=== PATIENT | female | born 1945 | race Caucasian/White ===

== ENCOUNTER 2016-04-19 06:37 | Day surgery (SDC) | payer OTHER ==
[2016-04-13 13:06] VITALS: BMI 27.4
[2016-04-19] MEDS ORDERED: MIDAZOLAM HCL 2 MG/2 ML SINGLE DOSE VIAL ONE ×2 (07:11→08:26)
[2016-04-19] MEDS: CYCLOPENTOLATE 2% OPHTH SOLN 2 ML BOTTLE ONE ×3 (07:20→07:30)
[2016-04-19] MEDS ORDERED: LIDOCAINE 1% P/F 10 MG/ML VIAL ONE (07:20)
[2016-04-19] MEDS: TROPICAMIDE 1% OPHTH SOLN 15 ML BOTTLE ONE ×3 (07:20→07:30)
[2016-04-19] MEDS: PHENYLEPHRINE 2.5% OPHTH SOLN 15 ML BOTTLE ONE ×3 (07:20→07:30)
[2016-04-19] MEDS: CIPROFLOXACIN 0.3% EYE DROPS 5 ML BOTTLE ONE ×3 (07:20→07:30)
[2016-04-19] MEDS ORDERED: TETRACAINE 0.5% OPHTH SOLN 2 ML BOTTLE ONE (07:21)
[2016-04-19] MEDS ORDERED: LIDOCAINE HCL 2% JELLY 10 ML CARTRIDGE ONE (07:21)
[2016-04-19] MEDS ORDERED: BSS (NA/CA/MG/K) BALANCED SALT SOLUTION OPHTH SOLN 15 ML BOTTLE ONE (07:21)
[2016-04-19] MEDS ORDERED: NEO/POLYMYX B SULF/DEXAMETH OPHTHALMIC 5ML BOTTLE ONE ×2 (07:21→07:22)
[2016-04-19] MEDS ORDERED: CARBACHOL 0.01% INTRA-OCULAR 1.5 ML VIAL ONE (07:21)
[2016-04-19 07:26] VITALS: TEMP 98
[2016-04-19] MEDS ORDERED: ACETAMINOPHEN 325 MG TABLET (FP) PO PRN (08:13)
[2016-04-19] MEDS ORDERED: ONDANSETRON 4 MG/2 ML VIAL IVPUSH PRN (08:13)
[2016-04-19] MEDS ORDERED: LACTATED RINGERS SOLUTION 1,000 ML IV SCH (08:15)
--- NOTE | 2016-04-19 09:14 | OP ---
DATE OF PROCEDURE: 04/19/2016 OPERATIVE PROCEDURE: Lens Phacoemulsification with Posterior Chamber Intraocular Lens Placement Left Eye PREOPERATIVE DIAGNOSIS: Visually Significant Cataract of Left Eye POSTOPERATIVE DIAGNOSIS: Visually Significant Cataract of Left Eye SURGEON: Herbert Galloway M.D. ANESTHESIA: MAC ANESTHESIOLOGIST: PROCEDURE: The patient was brought to the operating room and placed under monitored anesthesia care by Anesthesia. A drop of Tetracaine was then placed over the left eye. The patient was then prepped and draped in the usual sterile manner. A speculum was then placed over the left eye. The eye was then well irrigated with copious amounts of BSS (balanced salt solution). The operating microscope was then moved into position. A paracentesis was performed using a 15 degree blade. At this point 0.5 mL of 1% preservative-free lidocaine was injected into the anterior chamber. Amvisc plus was then injected into the anterior chamber. A clear corneal incision was then formed using a 2.2 mm keratome. A capsulorrhexis was then performed in a continuous circular fashion beginning with a cystotome, completed with an Utratas forceps. Hydrodissection was then performed using BSS on a cannula. The phaco probe was then introduced through the corneal wound and the cataract was removed using the phaco chop technique. Approximately 3 seconds of absolute phaco time was used. The remaining cortex was then removed using irrigation and aspiration with an I/A probe. The capsule was then filled with regular Amvisc and the capsule was noted to be intact. A previously selected foldable posterior chamber intraocular lens was then injected into the capsule through the corneal wound using a lens injector. It was then dialed into position using a Sinskey hook. The Amvisc was then removed using irrigation and aspiration. Miostat was then injected through the paracentesis to constrict the pupil. The paracentesis and corneal wound were then hydrated and noted to be water tight. A drop of Maxitrol was then placed over the eye. The speculum was removed and clear shield was taped over the eye. The patient tolerated the procedure well and there were no surgical complications. The patient was asked to follow up in my office the next day. HERBERT GALLOWAY M.D. [id number]
[2016-04-19] MEDS ORDERED: ACETAMINOPHEN 325 MG TABLET (FP) ONE (09:16)
[2016-04-19 10:22] VITALS: BP 142/72; PULSE 80
== END 2016-04-19 09:50 | disposition home or self-care (01) ==
LOC: FASU 06:37
PROVIDERS: ATTEND Ophthalmology
PROC: 08RK3JZ Replacement of Left Lens with Synthetic Substitute, Percutaneous Approach (ICD-10-PCS; principal; 2016-04-19 08:23)
DX: H26.8 Other specified cataract (principal)

== ENCOUNTER 2016-06-14 07:41 | Day surgery (SDC) | payer OTHER ==
[2016-06-12 11:50] VITALS: BMI 27.8
[2016-06-14] MEDS ORDERED: PROPOFOL 20 ML ONE (07:58)
[2016-06-14 10:26] VITALS: PULSE 52
[2016-06-14 10:27] VITALS: BP 114/65; TEMP 98
--- NOTE | 2016-06-15 11:37 | PATH ---
Surgical Pathology Report Patient Name: MINA JOSUE [facility]. Rec. #: [id number] /Age/Gender: 1945 (Age: 70) / F Account: [id number] Location: [facility]-ENDOSCOPY Taken: 06/14/2016 Received: 06/14/2016 Reported: 06/15/2016 Physicians: Mahamed Vega M.D. Specimen(s) Received A: BX DUODENUM B: BX ANTRUM Clinical History GERD Gastritis, hiatal hernia Final Diagnosis A. DUODENUM, BIOPSY: DUODENAL MUCOSA WITH NO PATHOLOGIC CHANGES. NO HISTOLOGIC EVIDENCE OF GLUTEN SENSITIVE ENTEROPATHY (CELIAC SPRUE) IDENTIFIED. B. STOMACH, ANTRUM, BIOPSY: GASTRIC ANTRAL MUCOSA WITH REACTIVE GASTROPATHY. IMMUNOSTAIN FOR H. PYLORI IS NEGATIVE. Electronically Signed Gerber Burgos M.D. Gross Description A. Received in formalin, labeled "duodenum" are 2 fritz, irregular portions of soft tissue averaging 0.3 cm. in greatest dimension. The specimens are submitted in toto in one cassette. B. Received in formalin, labeled "antrum" are 2 fritz, irregular portions of soft tissue averaging 0.3 cm. in greatest dimension. The specimens are submitted in toto in one cassette. 06/14/2016 saudi06/14/2016
== END 2016-06-14 10:10 | disposition home or self-care (01) ==
LOC: FASU-ENDO 07:41
PROVIDERS: ATTEND Internal Medicine Gastroenterology
PROC: 0DB68ZX Excision of Stomach, Via Natural or Artificial Opening Endoscopic, Diagnostic (ICD-10-PCS; 2016-06-14)
PROC: 0DB98ZX Excision of Duodenum, Via Natural or Artificial Opening Endoscopic, Diagnostic (ICD-10-PCS; principal; 2016-06-14 09:06)
DX: K31.9 Disease of stomach and duodenum, unspecified (principal); K44.9 Diaphragmatic hernia without obstruction or gangrene
CPT/HCPCS: 88305-TC; 88342-TC

== ENCOUNTER 2017-08-01 04:51 | Day surgery (SDC) | payer OTHER ==
[2017-07-26 16:24] VITALS: BMI 29.8
[2017-08-01 12:21] VITALS: PULSE 68
[2017-08-01 14:36] VITALS: BP 129/67; TEMP 97.8
== END 2017-08-01 13:25 | disposition home or self-care (01) ==
LOC: JASU-SURG 04:51
PROVIDERS: ATTEND Otolaryngology
PROC: 0CBS8ZZ Excision of Larynx, Via Natural or Artificial Opening Endoscopic (ICD-10-PCS; principal; 2017-08-01)
DX: J38.7 Other diseases of larynx (principal)
CPT/HCPCS: 88305-TC; 94760

== ENCOUNTER 2018-04-20 11:28 | Emergency (ER) | payer OTHER ==
[2018-04-20 11:34] VITALS: BMI 30.1
--- NOTE | 2018-04-20 12:10 | PDOC ---
History of Present Illness - General Chief Complaint: Pain, Acute Stated Complaint: CHOKING SENSATION Time Seen by Provider: 04/20/18 12:09 History Source: Patient, Old Records Exam Limitations: No Limitations - History of Present Illness Initial Comments: HPI: 72 y/o female presenting to [facility] ER complaining of a sensation of choking. Episode woke the pt from sleep. She states she had difficulty with inspiration and expiration. Noted a whistling sound. [place] as though there was something in her throat. Eventually, the pt was able to cough and the sensation resolved. Has experienced multiple similar episodes over the past five days. 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 Feels as though she is occasionally having trouble passing solid and liquid food similar to sensations experienced prior to the excision. Pt endorses recent URI symptoms. S/p outpatient Azithromycin antibiotic course. PCP: Dr. 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 L face, no radiation or chemotherapy Surgical Hx: - R and L hip replacement Past History - Past Medical History Allergies/Adverse Reactions: Allergies Allergy/AdvReac Type Severity Reaction Status Date / Time No Known Drug Allergies Allergy Verified 04/20/18 11:30 Home Medications: Ambulatory Orders Multivitamin [Multivitamins] 1 cap PO DAILY 06/17/13 Mv,Iron,Mins/Folic Acid/Biotin [Hair, Skin and Nails Softgel] 66.7 mcg PO BID Atenolol [Tenormin -] 50 mg PO HS 06/12/16 Pantoprazole Sodium 40 mg PO DAILY 06/12/16 Tramadol HCl [Ultram] 50 mg PO QID PRN 06/12/16 Benzonatate [Tessalon Pearls -] 200 mg PO TID #42 cap 04/20/18 Famotidine [Pepcid] 20 mg PO BID #28 tablet 04/20/18 Ibandronate Sodium 150 mg PO MONTHLY 04/20/18 Anemia: No Asthma: No Cancer: Yes (SKIN X 2-MELANOMA) Cardiac Disorders: No CVA: No COPD: No CHF: No Dementia: No Diabetes: No GI Disorders: Yes (REFLUX,GERD) Disorders: No HTN: Yes Hypercholesterolemia: No Liver Disease: No Seizures: No Thyroid Disease: No - Surgical History Abdominal Surgery: Yes (OPEN PARTIAL HYSTERECTOMY) Appendectomy: No Cardiac Surgery: No Cholecystectomy: No Lung Surgery: No Neurologic Surgery: No Orthopedic Surgery: Yes (BILATERAL HIP REPLACEMENT) - Immunization History Immunization Up to Date: Yes - Suicide/Smoking/Psychosocial Hx Smoking Status: No Smoking History: Never smoked Have you smoked in the past 12 months: No Number of Cigarettes Smoked Daily: 0 Cigars Per Day: 0 Hx Alcohol Use: No Drug/Substance Use Hx: No Substance Use Type: None Hx Substance Use Treatment: No Review of Systems - Review of Systems Able to Perform ROS?: Yes Comments:: In addition to that documented in the HPI above, the additional ROS was obtained : Constitutional: Denies fevers or chills Eyes: Denies vision changes ENMT: Per HPI CV: Denies chest pain Resp: Endorses SOB with sensation of choking GI: Denies vomiting or diarrhea : Denies painful urination MSK: Denies recent trauma Skin: Denies new rashes Neuro: Denies new numbness or tingling or weakness Endocrine: Denies polyuria Heme: Denies bleeding or bruising *Physical Exam - Vital Signs Last Vital Signs Temp Pulse Resp BP Pulse Ox 97.6 F 64 18 180/81 H 97 04/20/18 11:30 04/20/18 11:30 04/20/18 11:30 04/20/18 11:30 04/20/18 11:30 - Physical Exam Comments: Constitutional: Well-developed, well-nourished female in no acute distress or obvious discomfort. Found semi-fowlers on hospital bed. Alert and oriented x4. Answered all questions appropriately and completely. Speech was non-labored, non -pressured. Head: Normocephalic. No obvious external signs of trauma. Eyes: Sclerae white. EARS: Hearing grossly intact. NOSE: No nasal discharge. THROAT: Oral cavity and pharynx normal, though difficult to visualize posterior oropharynx. Mallampati class III. No inflammation, swelling, exudate, or lesions. Teeth and gingiva in good general condition. Neck: Supple, trachea is midline. Cardiovascular: Regular rate and regular rhythm. No murmur, rubs, clicks, or gallops. Peripheral pulses: Radial pulses full. Respiratory: Breathing unlabored. Equal chest rise and fall. Clear to auscultation bilaterally. No stridor, no wheezing, no rhonchi. No upper airway sounds. Neuro: Alert and oriented. Moving all four extremities spontaneously. Skin: Warm, dry, and intact. Psych: Affect: appropriate. Mood: normal. Moderate Sedation - Procedure Monitoring Vital Signs: Procedure Monitoring Vital Signs Temperature 97.6 F 04/20/18 11:30 Pulse Rate 64 04/20/18 11:30 Respiratory Rate 18 04/20/18 11:30 Blood Pressure 180/81 H 04/20/18 11:30 O2 Sat by Pulse Oximetry (%) 97 04/20/18 11:30 Medical Decision Making - Medical Decision Making *Reviewed vital signs, nursing notes, and prior visit documentation (if available). 72 y/o female presenting with multiple resolved episodes of choking sensation with noisy breathing. Endorses occasional difficulty swallowing both liquids and solids. H/o vallecular epiglottic cyst. No respiratory distress or difficulty while in the department. Concern for possible recurrence of cyst with episodic airway obstruction versus esophageal spasm versus laryngeal spasm. 13:18 Telephone page sent to Dr. Arias, pts ENT of record. Awaiting call back. Telephone consultation with Dr. Arias. Verbally appraised of the pts HPI, ED course, and current plan of management. Will evaluate pt in the department. 15:[address] with Dr[address] Arias. Suspects symptoms are laryngeal spasm likely exacerbated by coughing and GERD. Recommends pt start Famotidine, Tessalon Pearls. To continue pantoprazole as previously prescribed. Pt can follow up as outpatient as needed. *DC/Admit/Observation/Transfer Diagnosis at time of Disposition: Laryngeal spasm - Discharge Dispostion Disposition: HOME Condition at time of disposition: Good Decision to Admit order: No - Prescriptions Prescriptions: Benzonatate [Tessalon Pearls -] 200 mg PO TID #42 cap Famotidine [Pepcid] 20 mg PO BID #28 tablet - Referrals Referrals: Fabiana Bhagat MD [Primary Care Provider] - Jimbo Arias MD [Staff Physician] - - Patient Instructions Printed Discharge Instructions: DI for Gastroesophageal Reflux Disease (GERD) Additional Instructions: You were seen today for a choking sensation in your throat. Dr. Arias came and evaluated you in the department. Your symptoms are likely related to a laryngeal spasm. You should continue to take your Pantoprazole for reflux. I have sent a prescription for for Tessalon Pearls to help with coughing and a prescription for Pepcid to help with reflux symptoms. Continue taking your home medications as previously prescribed. Follow up with your primary care doctor within the next 3-4 days. You will need to call to make an appointment. You can also follow up with Dr. Arias as needed. Go to the nearest emergency department if your condition worsens or you feel like you need additional emergency evaluation. Print Language: GAMBIAN - Post Discharge Activity
--- NOTE | 2018-04-20 15:18 | CON.ENT ---
Consult Consult Specialty:: ENT Referred by:: Dr. Calderon Reason for Consultation:: choking - History of Present Illness Chief Complaint: choking History of Present Illness: 72yo F with known hx GERD, had right valecular cyst excised , endotracheal intubation for elective lipoma surgery was well until 03-31-18, became ill wiht URI, saw PMD 04-03-18, rx ?azithromycin , felt well 04-09-18. Then yumiko past week throat moreirritated, feels [id number] coughing, feels SOB, once had significant trouble breahting with litle air movement and a stridorous sound Known hx GERd, on pantoprazole 40 mg qAM, GI Dr. Tovar, recent EGD/colonoscopy ok per pt and her . 3 days ago had severe reflux with throat burning tried otc mds including Benadryl, Tylenol sinus, Mucinex severe , - History Source History Provided By: Patient, Family Member, Medical Record - Alcohol/Substance Use Hx Alcohol Use: No - Smoking History Smoking history: Never smoked Have you smoked in the past 12 months: No Aproximately how many cigarettes per day: 0 Home Medications - Allergies Allergies/Adverse Reactions: Allergies Allergy/AdvReac Type Severity Reaction Status Date / Time No Known Drug Allergies Allergy Verified 04/20/18 11:30 - Home Medications Home Medications: Ambulatory Orders Multivitamin [Multivitamins] 1 cap PO DAILY 06/17/13 Mv,Iron,Mins/Folic Acid/Biotin [Hair, Skin and Nails Softgel] 66.7 mcg PO BID Atenolol [Tenormin -] 50 mg PO HS 06/12/16 Pantoprazole Sodium 40 mg PO DAILY 06/12/16 Tramadol HCl [Ultram] 50 mg PO QID PRN 06/12/16 Benzonatate [Tessalon Pearls -] 200 mg PO TID #42 cap 04/20/18 Ibandronate Sodium 150 mg PO MONTHLY 04/20/18 Physical Exam-ENT Vital Signs: Vital Signs Temperature 97.6 F 04/20/18 11:30 Pulse Rate 64 04/20/18 11:30 Respiratory Rate 18 04/20/18 11:30 Blood Pressure 180/81 H 04/20/18 11:30 O2 Sat by Pulse Oximetry (%) 97 04/20/18 11:30 Constitutional: Yes: Well Nourished, No Distress, Calm Head: Yes: WNL Face: Yes: WNL Eyes: Yes: WNL Nose: Yes: Other (sl edema, sl dry, no bleeding, no pus or polyp) Nasal Passage: Yes: WNL Oral/Pharynx: Yes: Other (tongue Class 3, oropharynx WNL exam caused coughing , voice clear, no stridor or respiratory distress) Outer Ear: Yes: WNL Ear Canal: Yes: WNL Tympanic Membrane: Yes: WNL Neck: Yes: WNL Problem List - Problems (1) Cough Code(s): R05 - COUGH (2) Choking episode Assessment/Plan: presently resolved suspect acute on chronic pharyngitis, combination of URI and laryngopharyngeal reflux Code(s): R09.89 - OTH SYMPTOMS AND SIGNS INVOLVING THE CIRC AND RESP SYSTEMS (3) GERD (gastroesophageal reflux disease) Assessment/Plan: known GERD on pantoprazole 40 mg qAM recent EGD by Dr. Tovar WN Recommend: continue pantoprazole add famotidine either 20 mg BID or 40 mg qHS reflux precautions don't eat late elevate head of bed (shoulders higher than hips using pillows) follow-up in office 2-3 weeks, pt and advised to call earlier if symptoms worse Thank you for consultation, Marciano Arias MD FACS Code(s): K21.9 - GASTRO-ESOPHAGEAL REFLUX DISEASE WITHOUT ESOPHAGITIS Qualifiers: Esophagitis presence: esophagitis presence not specified Qualified Code(s) : K21.9 - Gastro-esophageal reflux disease without esophagitis
[2018-04-20 15:44] VITALS: BP 167/82; PULSE 60; TEMP 98.1
--- NOTE | 2018-04-20 15:51 | PDOC ---
Attending Attestation - Resident Resident Name: Dexter Calderon - ED Attending Attestation I have performed the following: I have examined & evaluated the patient, The case was reviewed & discussed with the resident, I agree w/resident's findings & plan, Exceptions are as noted - HPI HPI: 04/20/18 15:43 GENERAL: The patient is in no acute distress. EYES: PERRLA, EOMI, sclera anicteric, conjunctiva clear. ENT: Ears normal, nares patent, oropharynx clear without exudates. Moist mucous membranes. Difficulty seeing Uvula NECK: Normal range of motion, supple without lymphadenopathy LUNGS: Breath sounds equal, clear to auscultation bilaterally. No wheezes, and no crackles. HEART:Regular rate and rhythm, normal S1 and S2 without murmur, rub or gallop. ABDOMEN: Soft, nontender, normoactive bowel sounds. No guarding, no rebound. No masses palpable. EXTREMITIES: Normal range of motion, no edema. NEUROLOGICAL: Cranial nerves II through XII grossly intact. Normal speech. No focal neurological deficits. SKIN: Warm, Dry, normal turgor, no rashes or lesions noted. - Medical Decision Making 04/20/18 15:44 72 yo F presenting for evaluation of choking sensation, respiratory distress Briefly, she is s/p removal of valecula cyst in July 2017 She had choking sensation daily mid march her got an upper respiratory infection, she then got it Was started on Azithromycin This did not help the congested feeling This morning she had a sensation that her airway was being obstructed She was able to clear it Pt currently is at her baseline no chest pain No shortness of breath Case reviewed with Dr Arias who has seen this patient in the ER He is concerned about direct visualization of the pharynx and larynx given she seems irritated He would recommend Pepcid in addition to her protonix, and Tessalon Pearles Pt understands importance of follow up Return to the ER for any recurrence of symptoms <Kenzie Padilla - Last Filed: 04/20/18 15:43> - HPI HPI: The patient is a 72 year old female with a significant PMH of GERD, skin ca( melanoma), bilateral hip replacement, lymphedema and hypertension who presents to the emergency department with a choking sensation for several days. The patient reports that she woke up this morning and felt like something was in her throat preventing her from breathing . the patient reports that she felt like she was going to pass out. The patient reports that she had a procedure for a right vallecular cyst removal recently and , subsequently she has been experiencing these episodes. She reports that she experiences choking on food, water and her saliva on a day to day basis. She states that her last endoscopy was normal. The patient denies any other symptoms. She denies any fever, chills nausea, vomiting, diarrhea, constipation or urinary symptoms. She denies any chest pain, headache or dizziness. The patient denies any other complaints. 04/20/18 15:56 - Physicial Exam PE: 04/20/18 15:56 GENERAL: The patient is in no acute distress. Talking in complete sentences. HEAD: Normal with no signs of trauma. EYES: PERRLA, EOMI, sclera anicteric, conjunctiva clear. ENT: Ears normal, nares patent, oropharynx clear without exudates. Moist mucous membranes. NECK: Normal range of motion, supple without lymphadenopathy, JVD, or masses. LUNGS: Breath sounds equal, clear to auscultation bilaterally. No wheezes, and no crackles. No stridor. HEART:Regular rate and rhythm, normal S1 and S2 without murmur, rub or gallop. NEUROLOGICAL: Cranial nerves II through XII grossly intact. Normal speech. No focal neurological deficits. MUSCULOSKELETAL: Back non-tender to palpation, no CVA tenderness SKIN: Warm, Dry, normal turgor, no rashes or lesions noted. Documentation prepared by Yudith Ordaz, acting as medical artist for Kenzie Padilla MD. <Yudith Ordaz - Last Filed: 04/20/18 15:57>
== END 2018-04-20 15:44 | disposition home or self-care (01) ==
LOC: JER 11:28
DX: J38.5 Laryngeal spasm (principal); R09.89 Other specified symptoms and signs involving the circulatory and respiratory systems; R05 Cough; K21.9 Gastro-esophageal reflux disease without esophagitis; Z96.643 Presence of artificial hip joint, bilateral; Z85.820 Personal history of malignant melanoma of skin
CPT/HCPCS: 99282-25

== ENCOUNTER 2019-11-25 00:31 | Emergency (ER) | payer OTHER ==
[2019-11-25 00:54] VITALS: BP 162/88; PULSE 67; TEMP 98.3; BMI 30.4
--- NOTE | 2019-11-25 01:05 | PDOC ---
History of Present Illness - General Chief Complaint: Eye Problem Stated Complaint: BI-LATERAL EYE BURNING Time Seen by Provider: 11/25/19 00:57 Past History - Medical History Allergies/Adverse Reactions: Allergies Allergy/AdvReac Type Severity Reaction Status Date / Time No Known Drug Allergies Allergy Verified 11/25/19 05:27 Home Medications: Ambulatory Orders Multivitamin [Multivitamins] 1 cap PO DAILY 06/17/13 Mv,Iron,Mins/Folic Acid/Biotin [Hair, Skin and Nails Softgel] 66.7 mcg PO BID 09/15/14 Atenolol [Tenormin -] 50 mg PO HS 06/12/16 Pantoprazole Sodium 40 mg PO DAILY 06/12/16 Tramadol HCl [Ultram] 50 mg PO QID PRN 06/12/16 Benzonatate [Tessalon Pearls -] 200 mg PO TID #42 cap 04/20/18 Famotidine [Pepcid] 20 mg PO BID #28 tablet 04/20/18 Ibandronate Sodium 150 mg PO MONTHLY 04/20/18 Anemia: No Asthma: No Cancer: Yes (SKIN X 2-MELANOMA) Cardiac Disorders: No CVA: No COPD: No CHF: No Dementia: No Diabetes: No GI Disorders: Yes (REFLUX,GERD) Disorders: No HTN: Yes Hypercholesterolemia: No Liver Disease: No Seizures: No Thyroid Disease: No - Surgical History Abdominal Surgery: Yes (OPEN PARTIAL HYSTERECTOMY) Appendectomy: No Cardiac Surgery: No Cholecystectomy: No Lung Surgery: No Neurologic Surgery: No Orthopedic Surgery: Yes (BILATERAL HIP REPLACEMENT) - Immunization History Immunization Up to Date: Yes - Psycho-Social/Smoking History Smoking Status: No Smoking History: Never smoked Have you smoked in the past 12 months: No Number of Cigarettes Smoked Daily: 0 Cigars Per Day: 0 Information on smoking cessation initiated: No - Substance Abuse Hx (Audit-C & DAST Scrn) How often the patient has a drink containing alcohol: Never Score: In Men: 4 or > Positive; In Women: 3 or > Positive: 0 Screen Result (Pos requires Nsg. Audit-10AR): Negative In the last yr the pt used illegal drug/Rx for NonMed reason: No Score: Yes response is considered Positive: 0 Screen Result (Positive result requires Nsg. DAST-10): Negative *Physical Exam - Vital Signs Last Vital Signs Temp Pulse Resp BP Pulse Ox 98.3 F 67 18 162/88 96 11/25/19 00:49 11/25/19 00:49 11/25/19 00:49 11/25/19 00:49 11/25/19 00:49 Medical Decision Making - Medical Decision Making 11/25/19 01:03 HPI: 74yo F hx dry eyes presents from home c/o b/l blurry vision and eye pain since 730pm this evening. USOH prior to 715 when nix (lice) shampoo went in eyes. Pt briefly washed out but left shampoo in hair for 10 minutes as instructed then washed out. Since then, pt c/o worsening blurry vision, pain behind both eyes L>R, and photophobia. Tried zylet eye drops at 930 without improvement. Denies lice; used shampoo for itchy scalp. Pt's face, neck, and torso were also itchy, resolved with benadryl. Pt also used towel to dry off eyes after washing out. Denies diplopia, vision field losses, headache, foreign body in eye, N/V, F/C, oral ingestion. PMH: HTN, GERD, melanoma, lipomas, dry eyes, s/p partial cataract surgery ROS: Constitutional: Negative for chills, fever, fatigue, diaphoresis. HENT: Negative for sore throat, rhinorrhea, congestion. Eyes: Positive for photophobia, b/l eye pain, eye redness, blurry vision. Respiratory: Negative for shortness of breath, cough. Cardiovascular: Negative for chest pain. Gastrointestinal: Negative for abdominal pain, blood in stool, constipation, diarrhea, nausea, and vomiting. Genitourinary: Negative for dysuria. Musculoskeletal: Negative for myalgias. Skin: Negative for rash. Neurological: Negative for light-headedness, weakness, numbness and headaches. Psychiatric/Behavioral: Negative for confusion. PE: Gen: Alert, NAD, comfortable-appearing. HEENT: MMM, NCAT. Eyes: PERRLA, EOMI, bilateral injection, red swollen b/l eyelids, no diplopia CV: Regular rate and rhythm. No murmurs, rubs, or gallops. PULM: No resp distress. CTAB, no wheezes, rales, or rhonchi. ABD: soft, NT/ND, no rebound tenderness or guarding. MSK: No bony deformities. 2+ pulses in all extremities. NEURO: AAOx3. PERRL. No gross CN deficits. Strength and sensation grossly intact throughout. Normal gait. EXTREMITIES: No cyanosis. No clubbing. No edema. PSYCH: Normal mood and thought pattern. SKIN: Warm and dry. Normal capillary refill. No rashes. No jaundice. MDM: 74yo F hx dry eyes presents from home c/o b/l blurry vision and eye pain since 730pm this evening s/p nix shampoo in eyes. Presentation c/w irritation from nix. Irrigate, pain management, and re-eval. -Irrigation with water x10min -Tetracaine drops Improvement in vision and pain s/p irrigation and tetracaine. D/c home with ophtho f/u and tobramycin drops. Return precautions given. Pt understands all discharge instructions and all questions were answered. Discharge - Discharge Information Problems reviewed: Yes Clinical Impression/Diagnosis: Eye irritation Condition: Improved Disposition: HOME - Admission No - Follow up/Referral Referrals: Fabiana Bhagat MD [Primary Care Provider] - - Patient Discharge Instructions Patient Printed Discharge Instructions: DI for Eye Pain Additional Instructions: You have been seen for your eye pain after getting Nix Shampoo in them. Your pain improved with tetracaine drops. We have given you ointment - apply twice a day as needed for irritation. Follow up with your eye doctor within 1 week. Return immediately for any new or concerning symptoms including vision loss or worsening vision, worsening pain, or vomiting. - Post Discharge Activity
[2019-11-25] MEDS ORDERED: TETRACAINE 0.5% HCL 0.6ML DROPPER.BOTTLE OU ONE (01:20)
[2019-11-25] MEDS ORDERED: TETRACAINE 0.5% OPHTH SOLN 2 ML BOTTLE ONE (01:21)
[2019-11-25] MEDS ORDERED: TOBRAMYCIN/DEXAMETHASONE OPHTH. OINTMENT 1 TUBE OU ONE (01:43)
--- NOTE | 2019-11-25 01:43 | PDOC ---
Documentation entered by Lianne Valdovinos SCRIBE, acting as scribe for Dianne Mullins MD. Dianne Mullins MD: This documentation has been prepared by the treeLizy Sydney, SCRIBE, under my direction and personally reviewed by me in its entirety. I confirm that the documentation accurately reflects all work, treatment, procedures, and medical decision making performed by me. Attending Attestation - Resident Resident Name: Melany Cui - ED Attending Attestation I have performed the following: I have examined & evaluated the patient, The case was reviewed & discussed with the resident, I agree w/resident's findings & plan, Exceptions are as noted - HPI HPI: 11/25/19 01:09 Patient is a 74 year old female with a significant past medical history of HTN, GERD, skin cancer (melanoma) who presents to the ED with blurry vision since 7:30pm this evening. As per patient, her scalp, face, and neck were itchy, for which she took Benadryl and decided to wash her hair with Nix, a shampoo for l ice. Patient endorses getting the shampoo into her eyes, but left the shampoo in her hair for another 10 minutes. Patient reports that once she washed her hair out, she began noticing vision changes, where she developed progressively worsening blurry vision, pain behind both eyes, and sensitivity to light. Denies fever, chills, shortness of breath, nausea, vomiting, diarrhea, or urinary changes. Allergies: NKDA PCP: Dr. Bhagat - Physicial Exam PE: 11/25/19 01:[address] Cui's physical exam . Pt's eyes were injected, no diploplia,pawel eomi - Medical Decision Making 11/25/19 01:41 74 yo female accidentally got NIX in her eyes and they became very irritated and painful, no vision field cuts ,no floaters pt;s symptoms improved with irrigation of her eyes with water Discharge - Discharge Information Problems reviewed: Yes Clinical Impression/Diagnosis: Eye irritation Condition: Improved Disposition: HOME - Follow up/Referral Referrals: Fabiana Bhagat MD [Primary Care Provider] - - Patient Discharge Instructions Patient Printed Discharge Instructions: DI for Eye Pain Additional Instructions: You have been seen for your eye pain after getting Nix Shampoo in them. Your pain improved with tetracaine drops. We have given you ointment - apply twice a day as needed for irritation. Follow up with your eye doctor within 1 week. Return immediately for any new or concerning symptoms including vision loss or worsening vision, worsening pain, or vomiting. - Post Discharge Activity
[2019-11-25] MEDS ORDERED: TOBRAMYCIN 0.3% OPHTH SOLN 5 ML BOTTLE ONE (01:44)
== END 2019-11-25 01:50 | disposition home or self-care (01) ==
LOC: JER 00:31
DX: H57.89 Other specified disorders of eye and adnexa (principal)
CPT/HCPCS: 99283-25

== ENCOUNTER 2020-08-24 10:50 | Inpatient (IN) | payer OTHER ==
[2020-08-24] MEDS ORDERED: ACETAMINOPHEN 1000 MG/100 ML VIAL (NON FORMULARY) IVPB ONE (10:52)
[2020-08-24] MEDS ORDERED: LACTATED RINGERS SOLUTION 1000 ML INFUS.BAG IV ONE (10:55)
[2020-08-24] MEDS ORDERED: ACETAMINOPHEN INJECTION 100 ML IVPB ONE ×2 (11:23→17:45)
[2020-08-24] MEDS ORDERED: SODIUM CHLORIDE 1,000 ML IV STA (11:35)
[2020-08-24 12:04] LABS: BASO % 3.4 % (0-2.0); EOS % 2.7 % (0-4.5); HEMATOCRIT 38.3 % (32.4-45.2); HEMOGLOBIN 12.8 GM/dl (10.7-15.3); LYMPH % 6.2 % (8-40); MCH 30.7 pg (25.7-33.7); MCHC 33.5 g/dl (32.0-36.0); MEAN CELL VOLUME 91.5 fl (80-96); MEAN PLT VOLUME 8.9 fl (7.5-11.1); MONO % 6.2 % (3.8-10.2); NEUT % 81.5 % (42.8-82.8); PLATELET COUNT 258 K/MM3 (134-434); RBC 4.19 M/mm3 (3.60-5.2); RDW 12.8 % (11.6-15.6)
[2020-08-24 12:10] LABS: ACTIVATED PTT 28.2 SECONDS (25.2-36.5)
[2020-08-24 12:14] LABS: INR 1.41 (0.82-1.09); PROTHROMBIN TIME (PATIENT) 15.4 SEC (10.2-13.0)
[2020-08-24 12:16] LABS: ALBUMIN 3.7 g/dl (3.4-5.0); ALK PHOS 65 U/L (45-117); ANION GAP 10 MMOL/L (8-16); CALCIUM 8.1 mg/dl (8.5-10); CHLORIDE 100 mmol/L (98-107); CO2 24 mmol/L (21-32); CREATININE 0.9 mg/dl (0.55-1.3); GLUCOSE,RANDOM 109 mg/dl (74-106); SGOT/AST 20 U/L (15-37); SGPT/ALT 19 U/L (13-61); SODIUM 134 mmol/L (136-145); TOT PROT 6.8 g/dl (6.4-8.2)
[2020-08-24 13:03] LABS: EPITHELIAL CELLS MODERATE /hpf
[2020-08-24] MEDS ORDERED: CEFTRIAXONE 1 GM in DEXTROSE 5%-WATER - 100 ML IVPB ONE (13:09)
[2020-08-24] MEDS ORDERED: cefTRIAXone SODIUM 1 GM VIAL ONE (13:29)
[2020-08-24 14:02] LABS: LACTIC ACID 2.6 mmol/L (0.4-2.0)
[2020-08-24 17:55] VITALS: BMI 30.7
[2020-08-25] MEDS: ACETAMINOPHEN 1000 MG/100 ML VIAL (NON FORMULARY) IVPB PRN ×2 (00:29→09:34)
[2020-08-25 08:02] LABS: EOS % 5.6 % (0-4.5); HEMATOCRIT 31.5 % (32.4-45.2); HEMOGLOBIN 10.8 GM/dl (10.7-15.3); LYMPH % 15.8 % (8-40); MCH 31.1 pg (25.7-33.7); MCHC 34.3 g/dl (32.0-36.0); MEAN CELL VOLUME 90.6 fl (80-96); MEAN PLT VOLUME 9.5 fl (7.5-11.1); MONO % 9.9 % (3.8-10.2); NEUT % 68.7 % (42.8-82.8); PLATELET COUNT 203 K/MM3 (134-434); RBC 3.47 M/mm3 (3.60-5.2); RDW 13.1 % (11.6-15.6); WHITE BLOOD COUNT 6.8 K/mm3 (4.0-10.8)
[2020-08-25 08:24] LABS: ALBUMIN 2.9 g/dl (3.4-5.0); BILIRUBIN,TOTAL 0.6 mg/dl (0.2-1); CALCIUM 7.7 mg/dl (8.5-10); CREATININE 0.7 mg/dl (0.55-1.3); TOT PROT 5.4 g/dl (6.4-8.2)
[2020-08-25] MEDS ORDERED: SODIUM CHLORIDE 1,000 ML IV SCH (08:30)
[2020-08-25] MEDS ORDERED: POTASSIUM CHLORIDE ORAL LIQUID 20 MEQ/15 ML PO ONE (09:00)
[2020-08-25] MEDS ORDERED: cefTRIAXone SODIUM 1 GM VIAL ONE (09:28)
[2020-08-25] MEDS ORDERED: DEXTROSE 5%-WATER - 50 ML IVPB ONE (09:29)
[2020-08-25 10:00] LABS: N-TERMINAL BNP 349.4 pg/ml (5-125)
[2020-08-25] MEDS ORDERED: CEFTRIAXONE 1 GM in DEXTROSE 5%-WATER - 50 ML IVPB ONE (10:00)
[2020-08-26 08:14] LABS: BASO % 1.1 % (0-2.0); EOS % 10.5 % (0-4.5); HEMATOCRIT 33.7 % (32.4-45.2); HEMOGLOBIN 11.4 GM/dl (10.7-15.3); LYMPH % 33.2 % (8-40); MCH 30.8 pg (25.7-33.7); MEAN CELL VOLUME 90.5 fl (80-96); MEAN PLT VOLUME 8.7 fl (7.5-11.1); MONO % 10.4 % (3.8-10.2); NEUT % 44.8 % (42.8-82.8); PLATELET COUNT 273 K/MM3 (134-434); RBC 3.72 M/mm3 (3.60-5.2); RDW 12.9 % (11.6-15.6); WHITE BLOOD COUNT 4.8 K/mm3 (4.0-10.8)
[2020-08-26 08:22] LABS: ALBUMIN 3.1 g/dl (3.4-5.0); BILIRUBIN,TOTAL 0.5 mg/dl (0.2-1); CALCIUM 8.2 mg/dl (8.5-10); CREATININE 0.7 mg/dl (0.55-1.3)
[2020-08-26 09:09] LABS: SARS-CoV-2 NAA Not Detected (Not Detected)
[2020-08-26] MEDS ORDERED: amLODIPine BESYLATE 2.5 MG TABLET (FP) PO SCH (10:00)
[2020-08-26] MEDS ORDERED: amLODIPine BESYLATE 2.5 MG TABLET (FP) PO ONE (16:20)
[2020-08-26] MEDS: ATORVASTATIN CA 10 MG TABLET (FP) PO SCH (21:34)
[2020-08-26] MEDS: PHENAZOPYRIDINE HCL 100 MG TABLET (FP) PO SCH (21:35)
[2020-08-27] MEDS: PHENAZOPYRIDINE HCL 100 MG TABLET (FP) PO SCH ×3 (05:49→21:32)
[2020-08-27 07:57] LABS: BASO % 0.8 % (0-2.0); EOS % 9.6 % (0-4.5); HEMOGLOBIN 11.9 GM/dl (10.7-15.3); LYMPH % 29.1 % (8-40); MEAN CELL VOLUME 90.8 fl (80-96); MEAN PLT VOLUME 8.9 fl (7.5-11.1); MONO % 7.5 % (3.8-10.2); PLATELET COUNT 332 K/MM3 (134-434); RBC 3.97 M/mm3 (3.60-5.2); RDW 12.7 % (11.6-15.6); WHITE BLOOD COUNT 6.7 K/mm3 (4.0-10.8)
[2020-08-27 08:04] LABS: ALBUMIN 3.2 g/dl (3.4-5.0); BILIRUBIN,TOTAL 0.6 mg/dl (0.2-1); CALCIUM 8.4 mg/dl (8.5-10); CREATININE 0.7 mg/dl (0.55-1.3); TOT PROT 5.9 g/dl (6.4-8.2)
[2020-08-27] MEDS: amLODIPine BESYLATE 5 MG TABLET (FP) PO SCH (09:09)
[2020-08-27 18:57] VITALS: PULSE 71
[2020-08-27] MEDS ORDERED: DEXTROSE 5%-WATER - 50 ML IVPB ONE (20:24)
[2020-08-27] MEDS ORDERED: cefTRIAXone SODIUM 1 GM VIAL ONE (20:24)
[2020-08-27] MEDS: CEFTRIAXONE 1 GM in DEXTROSE 5%-WATER - 50 ML IVPB SCH (20:32)
[2020-08-27] MEDS: ATORVASTATIN CA 10 MG TABLET (FP) PO SCH (21:32)
[2020-08-28] MEDS: PHENAZOPYRIDINE HCL 100 MG TABLET (FP) PO SCH (06:26)
[2020-08-28 06:32] VITALS: BP 129/71; TEMP 98.7
[2020-08-28] MEDS ORDERED: DEXTROSE 5%-WATER - 50 ML IVPB ONE (10:14)
[2020-08-28] MEDS ORDERED: cefTRIAXone SODIUM 1 GM VIAL ONE (10:14)
[2020-08-28] MEDS: amLODIPine BESYLATE 5 MG TABLET (FP) PO SCH (10:18)
[2020-08-28] MEDS: CEFTRIAXONE 1 GM in DEXTROSE 5%-WATER - 50 ML IVPB SCH (10:23)
== END 2020-08-28 12:07 | disposition home or self-care (01) | DRG 690 ==
LOC: FER 10:50 → FM/S 13:16
PROVIDERS: ADMIT Internal Medicine; ATTEND Internal Medicine
DX: N39.0 Urinary tract infection, site not specified (principal); I10 Essential (primary) hypertension; K21.9 Gastro-esophageal reflux disease without esophagitis; D72.829 Elevated white blood cell count, unspecified; I51.89 Other ill-defined heart diseases; E66.9 Obesity, unspecified; Z68.30 Body mass index [BMI] 30.0-30.9, adult; E78.5 Hyperlipidemia, unspecified
CPT/HCPCS: 36415; 71045-TC-FY; 71046-TC-FY; 76775-TC; 80053; 81003; 81015; 82728; 83605; 83735; 83880; 84439; 84443; 84481; 84484; 85025; 85610; 85730; 86140; 87040; 87086; 87804; 93005; 93306-TC; 99285-25; C9803; J0131; U0003; U0005

== ENCOUNTER 2020-11-24 04:59 | Inpatient (IN) | payer OTHER ==
[2020-11-24] MEDS ORDERED: ACETAMINOPHEN 1000 MG/100 ML VIAL (NON FORMULARY) IVPB ONE ×2 (05:24→05:41)
[2020-11-24] MEDS ORDERED: ONDANSETRON 4 MG/2 ML VIAL IVPUSH ONE ×2 (05:24→05:41)
[2020-11-24] MEDS ORDERED: SODIUM CHLORIDE 2,341 ML IV ONE (05:39)
[2020-11-24] MEDS ORDERED: ACETAMINOPHEN INJECTION 100 ML IVPB ONE (05:41)
[2020-11-24] MEDS ORDERED: ONDANSETRON 4 MG/2 ML VIAL ONE (05:41)
[2020-11-24 06:40] LABS: BASO % 0.3 % (0-2.0); EOS % 1.6 % (0-4.5); HEMATOCRIT 37.7 % (32.4-45.2); HEMOGLOBIN 12.8 GM/dL (10.7-15.3); LYMPH % 4.2 % (8-40); MCH 30.4 pg (25.7-33.7); MCHC 33.9 g/dl (32.0-36.0); MEAN CELL VOLUME 89.5 fl (80-96); MEAN PLT VOLUME 9.2 fl (7.5-11.1); MONO % 3.2 % (3.8-10.2); NEUT % 90.7 % (42.8-82.8); PLATELET COUNT 260 10^3/uL (134-434); RBC 4.22 M/mm3 (3.60-5.2); WHITE BLOOD COUNT 14.7 K/mm3 (4.0-10.0)
[2020-11-24 06:45] LABS: INR 1.11 (0.83-1.09); PROTHROMBIN TIME (PATIENT) 13.4 SEC (9.7-13.0)
[2020-11-24 06:47] LABS: ACTIVATED PTT 27.2 SECONDS (25.2-36.5)
[2020-11-24] MEDS ORDERED: CEFTRIAXONE 1 GM in DEXTROSE 5%-WATER - 50 ML IVPB ONE ×2 (06:57→18:00)
[2020-11-24] MEDS ORDERED: SODIUM CHLORIDE 0.9% 1000 ML INFUS.BAG IV ONE (07:04)
[2020-11-24 07:08] LABS: LACTIC ACID 2.3 mmol/L (0.4-2.0)
[2020-11-24] MEDS ORDERED: cefTRIAXone SODIUM 1 GM VIAL ONE ×2 (07:12→18:51)
[2020-11-24 07:34] LABS: ALBUMIN 3.7 g/dl (3.4-5.0); ALK PHOS 75 U/L (45-117); ANION GAP 11 MMOL/L (8-16); BLOOD UREA NITROGEN 21.4 mg/dL (7-18); CALCIUM 8.1 mg/dL (8.5-10.1); CHLORIDE 103 mmol/L (98-107); CO2 24 mmol/L (21-32); CREATININE 1.1 mg/dL (0.55-1.3); GLUCOSE,RANDOM 115 mg/dL (74-106); SGOT/AST 31 U/L (15-37); SGPT/ALT 25 U/L (13-61); SODIUM 139 mmol/L (136-145); TOT PROT 6.8 g/dl (6.4-8.2)
[2020-11-24 08:12] LABS: EPI CELLS 4 /uL (0-25.1); HYALINE CASTS 1 /uL (0-3.1); URINE APPEARANCE CLEAR; URINE BILIRUBIN 1+ (NEGATIVE); URINE COLOR ORANGE; URINE GLUCOSE (UA) NEGATIVE (NEGATIVE); URINE KETONE NEGATIVE (NEGATIVE); URINE LEUK ESTERASE 1+ (NEGATIVE); URINE NITRITE POSITIVE (NEGATIVE); URINE PROTEIN 1+ (NEGATIVE); URINE RBC 35 /uL (0-23.9); URINE WBC 22 /uL (0-25.8)
[2020-11-24] MEDS ORDERED: PIPERACILLIN/TAZOB 4.5 GM 4.5 GM/100 ML BAG IVPB ONE (09:52)
[2020-11-24] MEDS ORDERED: VANCOMYCIN 1 GM in D5W (PRE-DOCKED) 1,000 MG/250 ML IVPB ONE (09:52)
[2020-11-24] MEDS ORDERED: PIPERACILLIN/TAZOBACTAM 4.5 GM VIAL IVPB ONE (09:53)
[2020-11-24] MEDS ORDERED: SODIUM CHLORIDE 1,000 ML IV STA (10:23)
[2020-11-24] MEDS ORDERED: VANCOMYCIN 1,000 MG VIAL (RESTRICTED TO ID ONLY) ONE (10:24)
[2020-11-24] MEDS ORDERED: DEXTROSE 5%-NORMAL SALINE 1,000 ML IV SCH (12:15)
[2020-11-24] MEDS ORDERED: ACETAMINOPHEN 500 MG TABLET (FP) ONE (14:18)
[2020-11-24] MEDS: ACETAMINOPHEN 500 MG TABLET (FP) PO SCH ×3 (14:18→22:42)
[2020-11-24 14:53] VITALS: BMI 31.5
[2020-11-24] MEDS ORDERED: DEXTROSE 5%-WATER - 50 ML IVPB ONE (18:51)
[2020-11-25] MEDS: ACETAMINOPHEN 500 MG TABLET (FP) PO SCH ×6 (03:00→21:54)
[2020-11-25] MEDS ORDERED: SODIUM CHLORIDE 1,000 ML IV SCH ×2 (06:30→13:53)
[2020-11-25 07:52] LABS: BASO % 0.1 % (0-2.0); EOS % 6.4 % (0-4.5); HEMATOCRIT 28.8 % (32.4-45.2); HEMOGLOBIN 9.7 GM/dl (10.7-15.3); LYMPH % 9.3 % (8-40); MCH 30.9 pg (25.7-33.7); MCHC 33.7 g/dl (32.0-36.0); MEAN CELL VOLUME 91.7 fl (80-96); MEAN PLT VOLUME 9.2 fl (7.5-11.1); MONO % 6.2 % (3.8-10.2); PLATELET COUNT 198 10^3/uL (134-434); RBC 3.14 M/mm3 (3.60-5.2); RDW 13.2 % (11.6-15.6)
[2020-11-25 08:19] LABS: ALBUMIN 2.8 g/dl (3.4-5.0); BILIRUBIN,TOTAL 0.4 mg/dl (0.2-1); CALCIUM 7.2 mg/dl (8.5-10); CREATININE 0.6 mg/dl (0.55-1.3); TOT PROT 5.2 g/dl (6.4-8.2)
[2020-11-25] MEDS: ENOXAPARIN NA (PORCINE) 40 MG/0.4 ML DISP.SYRIN SQ SCH (09:42)
[2020-11-25] MEDS ORDERED: POTASSIUM CHLORIDE ORAL LIQUID 20 MEQ/15 ML PO ONE (13:51)
[2020-11-25] MEDS ORDERED: CEFTRIAXONE 1,000 MG in DEXTROSE 5%-WATER - 50 ML IVPB SCH (14:00)
[2020-11-25] MEDS ORDERED: CEFTRIAXONE 1,000 GM in DEXTROSE 5%-WATER - 50 ML IVPB SCH (14:02)
[2020-11-25] MEDS ORDERED: CEFTRIAXONE 1 GM in DEXTROSE 5%-WATER - 50 ML IVPB SCH (14:34)
[2020-11-25] MEDS ORDERED: POTASSIUM CHLORIDE TABS 20 MEQ TABLET.ER (FP) PO ONE (14:45)
[2020-11-25] MEDS: CEFTRIAXONE 1 GM in DEXTROSE 5%-WATER - 50 ML IVPB SCH (14:46)
[2020-11-25] MEDS: PANTOPRAZOLE 40 MG TABLET PO SCH (17:23)
[2020-11-26] MEDS: ACETAMINOPHEN 500 MG TABLET (FP) PO SCH ×6 (03:29→21:30)
[2020-11-26 07:59] LABS: BASO % 1.2 % (0-2.0); EOS % 13.3 % (0-4.5); HEMATOCRIT 33.9 % (32.4-45.2); HEMOGLOBIN 11.2 GM/dl (10.7-15.3); LYMPH % 27.6 % (8-40); MCH 29.8 pg (25.7-33.7); MEAN CELL VOLUME 90.2 fl (80-96); MEAN PLT VOLUME 8.5 fl (7.5-11.1); MONO % 10.9 % (3.8-10.2); PLATELET COUNT 244 10^3/uL (134-434); RBC 3.76 M/mm3 (3.60-5.2); RDW 13.3 % (11.6-15.6); WHITE BLOOD COUNT 4.5 K/mm3 (4.0-10.8)
[2020-11-26 08:14] LABS: ALBUMIN 3.3 g/dl (3.4-5.0); BILIRUBIN,TOTAL 0.7 mg/dl (0.2-1); CALCIUM 8.3 mg/dl (8.5-10); CREATININE 0.6 mg/dl (0.55-1.3); TOT PROT 5.9 g/dl (6.4-8.2)
[2020-11-26] MEDS ORDERED: cefTRIAXone SODIUM 1 GM VIAL ONE (09:00)
[2020-11-26] MEDS ORDERED: DEXTROSE 5%-WATER - 50 ML IVPB ONE (09:01)
[2020-11-26] MEDS: ENOXAPARIN NA (PORCINE) 40 MG/0.4 ML DISP.SYRIN SQ SCH (09:26)
[2020-11-26] MEDS: CEFTRIAXONE 1 GM in DEXTROSE 5%-WATER - 50 ML IVPB SCH (09:26)
[2020-11-26] MEDS: PANTOPRAZOLE 40 MG TABLET PO SCH (09:26)
[2020-11-26] MEDS: amLODIPine BESYLATE 5 MG TABLET (FP) PO SCH (09:26)
[2020-11-26] MEDS ORDERED: ATORVASTATIN CA 10 MG TABLET (FP) PO SCH (22:00)
[2020-11-27] MEDS: ACETAMINOPHEN 500 MG TABLET (FP) PO SCH ×3 (02:56→09:09)
[2020-11-27 09:03] VITALS: BP 141/82; PULSE 77; TEMP 98.2
[2020-11-27] MEDS ORDERED: cefTRIAXone SODIUM 1 GM VIAL ONE (09:04)
[2020-11-27] MEDS ORDERED: DEXTROSE 5%-WATER - 50 ML IVPB ONE (09:04)
[2020-11-27] MEDS: CEFTRIAXONE 1 GM in DEXTROSE 5%-WATER - 50 ML IVPB SCH (09:07)
[2020-11-27] MEDS: ENOXAPARIN NA (PORCINE) 40 MG/0.4 ML DISP.SYRIN SQ SCH (09:07)
[2020-11-27] MEDS: amLODIPine BESYLATE 5 MG TABLET (FP) PO SCH (09:08)
[2020-11-27] MEDS: PANTOPRAZOLE 40 MG TABLET PO SCH (09:08)
== END 2020-11-27 10:35 | disposition home or self-care (01) | DRG 872 ==
LOC: FER 04:59 → FM/S 13:53
PROVIDERS: ADMIT Internal Medicine; ATTEND Internal Medicine
DX: A41.51 Sepsis due to Escherichia coli [E. coli] (principal); N39.0 Urinary tract infection, site not specified; I10 Essential (primary) hypertension; E78.5 Hyperlipidemia, unspecified; K21.9 Gastro-esophageal reflux disease without esophagitis; E66.9 Obesity, unspecified; Z68.31 Body mass index [BMI] 31.0-31.9, adult
CPT/HCPCS: 36415; 71045-TC-FY; 76775-TC; 76856-TC; 80053; 81003; 83605; 83880; 84484; 85025; 85610; 85730; 87040; 87086; 87804; 99285-25; C9803; J0131; U0003; U0005

== ENCOUNTER 2020-12-17 17:13 | Inpatient (IN) | payer OTHER ==
[2020-12-17 19:53] LABS: HEMATOCRIT 40.5 % (32.4-45.2); HEMOGLOBIN 13.9 GM/dl (10.7-15.3); MCH 30.9 pg (25.7-33.7); MCHC 34.3 g/dl (32.0-36.0); MEAN PLT VOLUME 10.4 fl (7.5-11.1); PLATELET COUNT 323 10^3/uL (134-434); RDW 12.8 % (11.6-15.6); WHITE BLOOD COUNT 18.1 K/mm3 (4.0-10.8)
[2020-12-17 20:01] LABS: INR 1.13 (0.82-1.09); PROTHROMBIN TIME (PATIENT) 12.5 SEC (10.2-13.0)
[2020-12-17 20:08] LABS: ALBUMIN 4.1 g/dl (3.4-5.0); ALK PHOS 66 U/L (45-117); ANION GAP 10 MMOL/L (8-16); CALCIUM 8.6 mg/dl (8.5-10); CHLORIDE 104 mmol/L (98-107); CO2 23 mmol/L (21-32); CREATININE 0.9 mg/dl (0.55-1.3); GLUCOSE,RANDOM 110 mg/dl (74-106); SGOT/AST 24 U/L (15-37); SGPT/ALT 17 U/L (13-61); SODIUM 137 mmol/L (136-145); TOT PROT 6.6 g/dl (6.4-8.2)
[2020-12-17] MEDS ORDERED: ACETAMINOPHEN 1000 MG/100 ML VIAL (NON FORMULARY) IVPB PRN (20:10)
[2020-12-17 20:12] LABS: EPITHELIAL CELLS FEW /hpf
[2020-12-17] MEDS: SODIUM CHLORIDE 1,000 ML IV SCH (20:22)
[2020-12-17 20:37] LABS: PLATELET ESTIMATE ADEQUATE
[2020-12-17] MEDS ORDERED: SODIUM CHLORIDE 1,000 ML IV STA (20:53)
[2020-12-17] MEDS ORDERED: cefTRIAXone SODIUM 1 GM VIAL ONE (20:57)
[2020-12-17] MEDS: CEFTRIAXONE 1 GM in DEXTROSE 5%-WATER - 50 ML IVPB SCH (21:00)
[2020-12-17 21:13] LABS: LACTIC ACID 2.3 mmol/L (0.4-2.0)
[2020-12-18 00:43] VITALS: BMI 31.4
[2020-12-18 00:54] LABS: LACTIC ACID 3.4 mmol/L (0.4-2.0)
[2020-12-18 08:11] LABS: BASO % 0.4 % (0-2.0); EOS % 5.8 % (0-4.5); HEMATOCRIT 31.9 % (32.4-45.2); HEMOGLOBIN 10.9 GM/dl (10.7-15.3); LYMPH % 7.1 % (8-40); MCH 30.5 pg (25.7-33.7); MEAN CELL VOLUME 89.6 fl (80-96); MONO % 4.7 % (3.8-10.2); PLATELET COUNT 213 10^3/uL (134-434); RBC 3.56 M/mm3 (3.60-5.2); RDW 12.7 % (11.6-15.6); WHITE BLOOD COUNT 13.4 K/mm3 (4.0-10.8)
[2020-12-18 08:18] LABS: ALBUMIN 3.1 g/dl (3.4-5.0); CALCIUM 7.5 mg/dl (8.5-10); CREATININE 0.6 mg/dl (0.55-1.3); TOT PROT 5.4 g/dl (6.4-8.2)
[2020-12-18] MEDS ORDERED: cefTRIAXone SODIUM 1 GM VIAL ONE (09:22)
[2020-12-18] MEDS ORDERED: DEXTROSE 5%-WATER - 50 ML IVPB ONE ×3 (09:23→17:50)
[2020-12-18] MEDS: amLODIPine BESYLATE 2.5 MG TABLET (FP) PO SCH (09:28)
[2020-12-18] MEDS: CEFTRIAXONE 1 GM in DEXTROSE 5%-WATER - 50 ML IVPB SCH (09:29)
[2020-12-18] MEDS ORDERED: VANCOMYCIN 1,000 MG in DEXTROSE 5%-WATER - 250 ML IVPB SCH (10:00)
[2020-12-18] MEDS ORDERED: PIPERACILLIN/TAZOBACTAM 3.375 GM VIAL IVPB ONE ×2 (11:15→17:50)
[2020-12-18] MEDS: PIPERACILLIN/TAZOB 3.375 GM 3.375 GM in DEXTROSE 5%-WATER - 50 ML IVPB SCH ×2 (11:20→18:14)
[2020-12-18] MEDS: VANCOMYCIN 1 GRAM (PRE-DOCKED) 1,000 MG/250 ML BAG IVPB SCH (21:46)
[2020-12-18] MEDS: SODIUM CHLORIDE 1,000 ML IV SCH (21:47)
[2020-12-19] MEDS ORDERED: PIPERACILLIN/TAZOBACTAM 3.375 GM VIAL IVPB ONE ×3 (00:13→17:32)
[2020-12-19] MEDS ORDERED: DEXTROSE 5%-WATER - 50 ML IVPB ONE ×3 (00:13→17:33)
[2020-12-19] MEDS: PIPERACILLIN/TAZOB 3.375 GM 3.375 GM in DEXTROSE 5%-WATER - 50 ML IVPB SCH ×3 (01:26→17:40)
[2020-12-19 08:13] LABS: BASO % 0.6 % (0-2.0); EOS % 16.8 % (0-4.5); HEMATOCRIT 48.3 % (32.4-45.2); HEMOGLOBIN 16.4 GM/dl (10.7-15.3); LYMPH % 16.7 % (8-40); MCHC 33.9 g/dl (32.0-36.0); MEAN CELL VOLUME 91.2 fl (80-96); MEAN PLT VOLUME 9.5 fl (7.5-11.1); MONO % 6.7 % (3.8-10.2); NEUT % 59.2 % (42.8-82.8); PLATELET COUNT 140 10^3/uL (134-434); RBC 5.29 M/mm3 (3.60-5.2); RDW 13.3 % (11.6-15.6); WHITE BLOOD COUNT 3.9 K/mm3 (4.0-10.8)
[2020-12-19 08:20] LABS: ALBUMIN 3.4 g/dl (3.4-5.0); BILIRUBIN,TOTAL 0.8 mg/dl (0.2-1); CALCIUM 8.3 mg/dl (8.5-10); CREATININE 0.6 mg/dl (0.55-1.3); TOT PROT 6.1 g/dl (6.4-8.2)
[2020-12-19] MEDS: amLODIPine BESYLATE 2.5 MG TABLET (FP) PO SCH (09:29)
[2020-12-19] MEDS: VANCOMYCIN 1 GRAM (PRE-DOCKED) 1,000 MG/250 ML BAG IVPB SCH ×2 (09:29→20:29)
[2020-12-19] MEDS: SODIUM CHLORIDE 1,000 ML IV SCH (20:29)
[2020-12-20] MEDS ORDERED: PIPERACILLIN/TAZOBACTAM 3.375 GM VIAL IVPB ONE ×2 (01:22→09:54)
[2020-12-20] MEDS ORDERED: DEXTROSE 5%-WATER - 50 ML IVPB ONE ×2 (01:22→09:54)
[2020-12-20] MEDS: PIPERACILLIN/TAZOB 3.375 GM 3.375 GM in DEXTROSE 5%-WATER - 50 ML IVPB SCH ×3 (01:34→19:57)
[2020-12-20 09:12] LABS: HEMATOCRIT 35.7 % (32.4-45.2); MCH 30.1 pg (25.7-33.7); MCHC 33.7 g/dl (32.0-36.0); MEAN CELL VOLUME 89.3 fl (80-96); PLATELET COUNT 257 10^3/uL (134-434); RDW 13.1 % (11.6-15.6); WHITE BLOOD COUNT 5.9 K/mm3 (4.0-10.8)
[2020-12-20] MEDS: amLODIPine BESYLATE 5 MG TABLET (FP) PO SCH (09:57)
[2020-12-20 11:08] LABS: PLATELET ESTIMATE ADEQUATE
[2020-12-20] MEDS: VANCOMYCIN 1 GRAM (PRE-DOCKED) 1,000 MG/250 ML BAG IVPB SCH ×2 (12:49→20:37)
[2020-12-20] MEDS: PANTOPRAZOLE 40 MG TABLET PO SCH (13:57)
[2020-12-21] MEDS: PIPERACILLIN/TAZOB 3.375 GM 3.375 GM in DEXTROSE 5%-WATER - 50 ML IVPB SCH ×2 (02:45→10:18)
[2020-12-21 08:07] LABS: BASO % 1.5 % (0-2.0); EOS % 18.6 % (0-4.5); HEMATOCRIT 39.2 % (32.4-45.2); HEMOGLOBIN 13.1 GM/dl (10.7-15.3); LYMPH % 30.1 % (8-40); MCH 30.1 pg (25.7-33.7); MCHC 33.3 g/dl (32.0-36.0); MEAN CELL VOLUME 90.2 fl (80-96); MEAN PLT VOLUME 9.2 fl (7.5-11.1); MONO % 7.3 % (3.8-10.2); NEUT % 42.5 % (42.8-82.8); PLATELET COUNT 292 10^3/uL (134-434); RBC 4.34 M/mm3 (3.60-5.2); RDW 12.9 % (11.6-15.6); WHITE BLOOD COUNT 6.1 K/mm3 (4.0-10.8)
[2020-12-21 08:10] LABS: ALBUMIN 3.8 g/dl (3.4-5.0); BILIRUBIN,TOTAL 0.6 mg/dl (0.2-1); CALCIUM 9.3 mg/dl (8.5-10); CREATININE 0.7 mg/dl (0.55-1.3); TOT PROT 6.9 g/dl (6.4-8.2)
[2020-12-21] MEDS ORDERED: PIPERACILLIN/TAZOBACTAM 3.375 GM VIAL IVPB ONE (10:11)
[2020-12-21] MEDS ORDERED: DEXTROSE 5%-WATER - 50 ML IVPB ONE (10:11)
[2020-12-21] MEDS: PANTOPRAZOLE 40 MG TABLET PO SCH (10:18)
[2020-12-21] MEDS: amLODIPine BESYLATE 5 MG TABLET (FP) PO SCH (10:18)
[2020-12-21] MEDS: VANCOMYCIN 1 GRAM (PRE-DOCKED) 1,000 MG/250 ML BAG IVPB SCH (10:18)
[2020-12-21 10:22] VITALS: BP 113/52; PULSE 78; TEMP 98
== END 2020-12-21 16:56 | disposition home or self-care (01) | DRG 872 ==
LOC: FER 17:13 → FM/S 23:49
PROVIDERS: ADMIT Internal Medicine; ATTEND Internal Medicine
DX: A41.89 Other specified sepsis (principal); E87.2 Acidosis; I10 Essential (primary) hypertension; M54.5 Low back pain; M81.0 Age-related osteoporosis without current pathological fracture; R50.9 Fever, unspecified; D72.819 Decreased white blood cell count, unspecified; R11.2 Nausea with vomiting, unspecified; E66.9 Obesity, unspecified; Z68.31 Body mass index [BMI] 31.0-31.9, adult; Z79.2 Long term (current) use of antibiotics; K21.9 Gastro-esophageal reflux disease without esophagitis; Z96.643 Presence of artificial hip joint, bilateral
CPT/HCPCS: 36415; 71045-TC-FY; 73523-TC-FY; 74177-TC; 80053; 81003; 81015; 82550; 82930; 83605; 84484; 85025; 85610; 85651; 86618; 87040; 87086; 87207; 87798; 93005; 99285-25; C9803; G0480; J0131; Q9967; U0003; U0005

== ENCOUNTER 2021-06-29 13:37 | Emergency (ER) | payer OTHER ==
[2021-06-29 14:03] VITALS: TEMP 99.3; BMI 28.3
[2021-06-29 15:49] LABS: VENOUS BASE EXCESS -1.1 mmol/L (-2-2); VENOUS O2 SATURATION 63.5 % (70-80); VENOUS PCO2 43.4 mmHg (38-52); VENOUS PH 7.368 (7.310-7.410)
[2021-06-29 16:14] LABS: INR 1.03 (0.83-1.09); PROTHROMBIN TIME (PATIENT) 11.9 SEC (9.7-13.0)
[2021-06-29 16:17] LABS: ACTIVATED PTT 34.1 SECONDS (25.2-36.5)
[2021-06-29 16:21] LABS: ALBUMIN 3.9 g/dl (3.4-5.0); BILIRUBIN,TOTAL 0.6 mg/dl (0.2-1); CALCIUM 8.9 mg/dl (8.5-10); CREATININE 0.8 mg/dl (0.55-1.3); TOT PROT 6.8 g/dl (6.4-8.2)
[2021-06-29 16:26] LABS: LACTIC ACID 2.3 mmol/L (0.4-2.0)
[2021-06-29 16:51] LABS: BASO % 0.5 % (0-2.0); EOS % 0.4 % (0-4.5); HEMATOCRIT 39.5 % (32.4-45.2); HEMOGLOBIN 13.4 GM/dL (10.7-15.3); LYMPH % 18.7 % (8-40); MCH 30.6 pg (25.7-33.7); MEAN CELL VOLUME 90.1 fl (80-96); MEAN PLT VOLUME 8.5 fl (7.5-11.1); MONO % 5.3 % (3.8-10.2); NEUT % 75.1 % (42.8-82.8); PLATELET COUNT 277 10^3/uL (134-434); RBC 4.39 M/mm3 (3.60-5.2); RDW 13.9 % (11.6-15.6); WHITE BLOOD COUNT 8.3 K/mm3 (4.0-10.0)
[2021-06-29 19:00] VITALS: BP 144/75; PULSE 61
[2021-06-29 20:20] LABS: BASO % 0.5 % (0-2.0); EOS % 0.7 % (0-4.5); HEMATOCRIT 38.4 % (32.4-45.2); LYMPH % 22.4 % (8-40); MCH 30.3 pg (25.7-33.7); MCHC 33.7 g/dl (32.0-36.0); MEAN CELL VOLUME 89.8 fl (80-96); MEAN PLT VOLUME 8.6 fl (7.5-11.1); MONO % 6.8 % (3.8-10.2); NEUT % 69.6 % (42.8-82.8); PLATELET COUNT 274 10^3/uL (134-434); RBC 4.28 M/mm3 (3.60-5.2); RDW 14.1 % (11.6-15.6); WHITE BLOOD COUNT 9.2 K/mm3 (4.0-10.0)
== END 2021-06-29 21:16 | disposition home or self-care (01) ==
LOC: FER 13:37
DX: K62.5 Hemorrhage of anus and rectum (principal)
CPT/HCPCS: 36415; 74174-TC; 80053; 82803; 83605; 85025; 85610; 85730; 86850; 86900; 86901; 99284-25; A9579

== ENCOUNTER 2022-02-28 04:21 | Inpatient (IN) | payer OTHER ==
[2022-02-28 04:29] VITALS: BMI 30.1
[2022-02-28] MEDS ORDERED: SODIUM CHLORIDE 500 ML IV STA (04:48)
[2022-02-28 06:02] LABS: BASO % 0.3 % (0-2.0); EOS % 0.3 % (0-4.5); HEMATOCRIT 37.4 % (32.4-45.2); HEMOGLOBIN 12.3 GM/dL (10.7-15.3); LYMPH % 5.5 % (8-40); MCH 29.9 pg (25.7-33.7); MCHC 32.9 g/dl (32.0-36.0); MEAN PLT VOLUME 8.8 fl (7.5-11.1); MONO % 3.9 % (3.8-10.2); PLATELET COUNT 302 10^3/uL (134-434); RBC 4.11 M/mm3 (3.60-5.2); RDW 13.9 % (11.6-15.6)
[2022-02-28 06:04] LABS: EPI CELLS 12 /uL (0-25.1); HYALINE CASTS 0 /uL (0-3.1); URINE APPEARANCE CLEAR; URINE BILIRUBIN NEGATIVE (NEGATIVE); URINE COLOR DK YELLOW; URINE GLUCOSE (UA) NEGATIVE (NEGATIVE); URINE KETONE NEGATIVE (NEGATIVE); URINE LEUK ESTERASE TRACE (NEGATIVE); URINE NITRITE POSITIVE (NEGATIVE); URINE PROTEIN NEGATIVE (NEGATIVE); URINE RBC 16 /uL (0-23.9); URINE UROBILINOGEN 0.2 mg/dL (0.2-1.0); URINE WBC 26 /uL (0-25.8)
[2022-02-28 06:23] LABS: CALCIUM 8.4 mg/dL (8.5-10.1)
[2022-02-28 06:24] LABS: ALBUMIN 3.7 g/dl (3.4-5.0); BLOOD UREA NITROGEN 20.4 mg/dL (7-18)
[2022-02-28 06:27] LABS: CREATININE 0.7 mg/dL (0.55-1.3)
[2022-02-28 06:28] LABS: BILIRUBIN,TOTAL 0.7 mg/dL (0.2-1); TOT PROT 6.6 g/dl (6.4-8.2)
[2022-02-28] MEDS ORDERED: SODIUM CHLORIDE 1,000 ML IV SCH (09:45)
[2022-02-28] MEDS: ACETAMINOPHEN 500 MG TABLET (FP) PO PRN (10:30)
[2022-02-28 13:37] LABS: URINE BACTERIA FEW /uL (0-1359)
[2022-03-01] MEDS: ACETAMINOPHEN 500 MG TABLET (FP) PO PRN (09:36)
[2022-03-01] MEDS ORDERED: CEFTRIAXONE 1 GM in DEXTROSE 5%-WATER - 50 ML IVPB SCH (10:00)
[2022-03-01] MEDS ORDERED: amLODIPine BESYLATE 5 MG TABLET (FP) PO SCH (10:00)
[2022-03-01] MEDS ORDERED: PANTOPRAZOLE 40 MG TABLET PO SCH (10:00)
[2022-03-01 11:58] LABS: BASO % 0.5 % (0-2.0); EOS % 4.5 % (0-4.5); HEMATOCRIT 33.2 % (32.4-45.2); HEMOGLOBIN 11.3 GM/dL (10.7-15.3); LYMPH % 18.8 % (8-40); MCH 30.9 pg (25.7-33.7); MCHC 33.9 g/dl (32.0-36.0); MEAN CELL VOLUME 91.2 fl (80-96); MEAN PLT VOLUME 8.6 fl (7.5-11.1); MONO % 4.7 % (3.8-10.2); NEUT % 71.5 % (42.8-82.8); PLATELET COUNT 275 10^3/uL (134-434); RBC 3.64 M/mm3 (3.60-5.2); WHITE BLOOD COUNT 10.8 K/mm3 (4.0-10.0)
[2022-03-01 14:05] VITALS: BP 132/64; PULSE 77; RESP 16; TEMP 98
== END 2022-03-01 17:28 | disposition home or self-care (01) | DRG 690 ==
LOC: FER 04:21 → FM/S 07:15
PROVIDERS: ADMIT Internal Medicine; ATTEND Internal Medicine
DX: N12 Tubulo-interstitial nephritis, not specified as acute or chronic (principal); I10 Essential (primary) hypertension; E78.5 Hyperlipidemia, unspecified; K21.9 Gastro-esophageal reflux disease without esophagitis; M54.50 Low back pain, unspecified; M81.0 Age-related osteoporosis without current pathological fracture; E66.9 Obesity, unspecified; Z68.30 Body mass index [BMI] 30.0-30.9, adult
CPT/HCPCS: 0241U-QW; 36415; 71045-TC-FY; 80053; 81003; 85025; 87086; 93005; 99285-25

== ENCOUNTER 2022-03-23 08:52 | Inpatient (IN) | payer OTHER ==
[2022-03-23] MEDS ORDERED: SODIUM CHLORIDE 0.9% 500 ML INFUS.BAG IV ONE ×2 (08:56→11:54)
[2022-03-23] MEDS ORDERED: ONDANSETRON 4 MG/2 ML VIAL IVPUSH ONE (08:56)
[2022-03-23] MEDS ORDERED: ONDANSETRON 4 MG/2 ML VIAL ONE (09:08)
[2022-03-23] MEDS ORDERED: ACETAMINOPHEN 1000 MG/100 ML BAG IVPB ONE (09:33)
[2022-03-23] MEDS ORDERED: ACETAMINOPHEN INJECTION 100 ML IVPB ONE (10:05)
[2022-03-23 10:07] LABS: HEMATOCRIT 35.5 % (32.4-45.2); HEMOGLOBIN 11.8 G/dL (10.7-15.3); MCH 31.2 pg (25.7-33.7); MCHC 33.3 g/dl (32.0-36.0); MEAN CELL VOLUME 93.6 fl (80-96); MEAN PLT VOLUME 8.5 fl (7.5-11.1); PLATELET COUNT 259.5 10^3/uL (134-434); RBC 3.79 10^6/uL (3.60-5.2); RDW 14.6 % (11.6-15.6); WHITE BLOOD COUNT 7.9 10^3/uL (4.0-10.8)
[2022-03-23 10:10] LABS: PLATELET ESTIMATE ADEQUATE
[2022-03-23 10:14] LABS: EPITHELIAL CELLS RARE /hpf
[2022-03-23 10:16] LABS: ALBUMIN 3.9 g/dl (3.4-5.0); BILIRUBIN,TOTAL 0.8 mg/dl (0.2-1); CALCIUM 8.7 mg/dl (8.5-10); CREATININE 0.6 mg/dl (0.55-1.3); TOT PROT 6.4 g/dl (6.4-8.2)
[2022-03-23 14:09] VITALS: BMI 30.7
[2022-03-23] MEDS ORDERED: ACETAMINOPHEN 1000 MG/100 ML BAG IVPB PRN (14:11)
[2022-03-23] MEDS ORDERED: ONDANSETRON 4 MG/2 ML VIAL IVPUSH PRN (14:12)
[2022-03-23] MEDS ORDERED: DEXTROSE 5%-0.45% SALINE 1,000 ML IV SCH (14:15)
[2022-03-23] MEDS: PANTOPRAZOLE SODIUM 40 MG VIAL IVPUSH SCH ×2 (18:08→18:10)
[2022-03-24 08:25] LABS: ALBUMIN 3.4 g/dl (3.4-5.0); BILIRUBIN,TOTAL 0.8 mg/dl (0.2-1); CREATININE 0.6 mg/dl (0.55-1.3); TOT PROT 5.7 g/dl (6.4-8.2)
[2022-03-24 08:38] VITALS: RESP 20
[2022-03-24] MEDS: PANTOPRAZOLE SODIUM 40 MG VIAL IVPUSH SCH (10:15)
[2022-03-24 10:18] LABS: BASO % 1.7 % (0-2.0); EOS % 2.9 % (0-4.5); HEMATOCRIT 32.6 % (32.4-45.2); HEMOGLOBIN 11.1 GM/dL (10.7-15.3); LYMPH % 37.4 % (8-40); MCH 31.7 pg (25.7-33.7); MEAN CELL VOLUME 93.3 fl (80-96); MEAN PLT VOLUME 8.8 fl (7.5-11.1); MONO % 9.4 % (3.8-10.2); NEUT % 48.6 % (42.8-82.8); PLATELET COUNT 237 10^3/uL (134-434); RDW 14.5 % (11.6-15.6); WHITE BLOOD COUNT 4.1 K/mm3 (4.0-10.0)
[2022-03-24 14:05] VITALS: BP 116/56; PULSE 72; TEMP 98.4
== END 2022-03-24 17:57 | disposition home or self-care (01) | DRG 446 ==
LOC: FER 08:52 → FM/S 11:34
PROVIDERS: ADMIT Internal Medicine; ATTEND Internal Medicine
DX: K83.9 Disease of biliary tract, unspecified (principal); K82.1 Hydrops of gallbladder; E78.5 Hyperlipidemia, unspecified; K21.9 Gastro-esophageal reflux disease without esophagitis; I10 Essential (primary) hypertension; R74.9 Abnormal serum enzyme level, unspecified; K76.0 Fatty (change of) liver, not elsewhere classified; M54.50 Low back pain, unspecified; R11.2 Nausea with vomiting, unspecified; M81.0 Age-related osteoporosis without current pathological fracture; E66.9 Obesity, unspecified; Z68.30 Body mass index [BMI] 30.0-30.9, adult
CPT/HCPCS: 0241U-QW; 36415; 74181-TC; 76705-TC; 80053; 81003; 81015; 83690; 83735; 84484; 85025; 85027; 87086; 93005; 99285-25

== ENCOUNTER 2023-05-29 15:07 | Emergency (ER) | payer OTHER ==
[2023-05-29 15:23] VITALS: BP 154/81; PULSE 74; RESP 18; TEMP 98; BMI 30.4
[2023-05-29] MEDS ORDERED: ACETAMINOPHEN 500 MG TABLET (FP) ONE (15:27)
[2023-05-29] MEDS: ACETAMINOPHEN 500 MG TABLET (FP) PO ONE (15:30)
[2023-05-29] MEDS ORDERED: oxyCODONE HCL 5 MG TABLET ONE (15:31)
[2023-05-29] MEDS: oxyCODONE HCL 5 MG TABLET PO ONE (15:33)
[2023-05-29] MEDS ORDERED: LIDOCAINE HCL 1%, 10 MG/ML (20ML VIAL) ONE (16:36)
== END 2023-05-29 20:10 | disposition home or self-care (01) ==
LOC: FER 15:07
DX: M25.532 Pain in left wrist (principal); S62.92XA Unspecified fracture of left hand, initial encounter for closed fracture; R22.32 Localized swelling, mass and lump, left upper limb; W01.0XXA Fall on same level from slipping, tripping and stumbling without subsequent striking against object, initial encounter
CPT/HCPCS: 73070-TC-LT-FY; 73090-TC-LT-FY; 73110-TC-LT-FY; 73130-TC-LT-FY; 99284-25

== ENCOUNTER 2023-06-06 09:20 | Day surgery (SDC) | payer OTHER ==
[2023-06-05 09:33] VITALS: BMI 30.4
[2023-06-06] MEDS ORDERED: MIDAZOLAM HCL 2 MG/2 ML SINGLE DOSE VIAL ONE ×2 (09:24→10:31)
[2023-06-06] MEDS ORDERED: ROPIVACAINE HCL 0.5% 30ML VIAL ONE (09:24)
[2023-06-06] MEDS ORDERED: DEXAMETHASONE SOD PHOSPHATE/PF 10 MG/ML SDV ONE (09:24)
[2023-06-06] MEDS ORDERED: PROMETHAZINE HCL 25 MG/1 ML VIAL IVPB PRN (09:29)
[2023-06-06] MEDS ORDERED: LACTATED RINGERS SOLUTION 1,000 ML IV SCH (09:30)
[2023-06-06] MEDS ORDERED: GUM MASTIC/STORAX/MSAL/ALCOHOL 1 DRP DROPSBTL MC ONE (11:13)
[2023-06-06 12:38] VITALS: RESP 18
[2023-06-06 12:59] VITALS: BP 143/64; PULSE 71; TEMP 97.1
== END 2023-06-06 13:00 | disposition home or self-care (01) ==
LOC: FASU 09:20
PROVIDERS: ATTEND Orthopaedic Surgery Hand Surgery
PROC: 0LN60ZZ Release Left Lower Arm and Wrist Tendon, Open Approach (ICD-10-PCS; 2023-06-06)
PROC: 0PSJ04Z Reposition Left Radius with Internal Fixation Device, Open Approach (ICD-10-PCS; principal; 2023-06-06 10:44)
DX: S52.572A Other intraarticular fracture of lower end of left radius, initial encounter for closed fracture (principal); X58.XXXA Exposure to other specified factors, initial encounter; Y93.9 Activity, unspecified; Y92.9 Unspecified place or not applicable
CPT/HCPCS: 25290; 25609; C1713; 73110-TC-LT-FY; 73130-TC-LT-FY; 94760